=== PATIENT | male | born 2005 | race Caucasian/White ===

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

== ENCOUNTER → 2025-05-17 | Outpatient (CLI) | payer OTHER | LOC: M RAD 10:58 | PROVIDERS: ATTEND Internal Medicine Nephrology | DX: Q85.1 Tuberous sclerosis (principal); N18.1 Chronic kidney disease, stage 1 ==